=== PATIENT | male | born 1970 | race Caucasian/White ===

== ENCOUNTER 2020-05-07 13:42 | Emergency (ER) | payer BC ==
[2020-05-07] MEDS ORDERED: Lidocaine 1% 20 ML MDV INJECT ONE (13:45)
[2020-05-07] MEDS ORDERED: Bupivacaine 0.25% 10 ML SDV INJECT ONE (13:45)
--- NOTE | 2020-05-07 13:51 | EDM.PDOC ---
ED HPI GENERAL MEDICAL PROBLEM - General Chief Complaint: General Stated Complaint: finger lac Time Seen by Provider: 05/07/20 13:44 Source of Information: Reports: Patient, Family (mother) History Limitations: Reports: No Limitations - History of Present Illness INITIAL COMMENTS - FREE TEXT/NARRATIVE: This patient is a 49 year old male that presents to the ER. Patient reports he was using electric trimmers while cutting the bushes. He reports accidently cutting his right 2nd finger. Onset: Today Onset Date: 05/07/20 Onset Time: 13:00 Location: Reports: Upper Extremity, Right Front/Back Body Image: 1 - laceration Severity: Mild Improves with: Reports: None Worsens with: Reports: None Associated Symptoms: Reports: No Other Symptoms - Related Data Allergies Allergy/AdvReac Type Severity Reaction Status Date / Time clindamycin Allergy Cannot Verified 05/07/20 13:45 Remember vancomycin Allergy Cannot Verified 05/07/20 13:45 Remember Home Meds: Home Meds [place]-3/DHA/Epa/Fish Oil [Fish Oil [place]-3 EC 1,200 mg] 1 cap PO DAILY 05/07/20 [History] ED ROS GENERAL - Review of Systems Review Of Systems: See Below Constitutional: Reports: No Symptoms Respiratory: Reports: No Symptoms Cardiovascular: Reports: No Symptoms GI/Abdominal: Reports: No Symptoms Musculoskeletal: Reports: No Symptoms Skin: Reports: Wound (laceration right 4th finger) ED EXAM, GENERAL - Physical Exam Exam: See Below Exam Limited By: No Limitations General Appearance: Alert, WD/WN, No Apparent Distress Respiratory/Chest: No Respiratory Distress, Lungs Clear, Normal Breath Sounds Cardiovascular: Normal Peripheral Pulses, Regular Rate, Rhythm Peripheral Pulses: 2+: Radial (L), Radial (R) Extremities: Normal Range of Motion, No Pedal Edema, Normal Capillary Refill Neurological: Alert, Oriented Skin Exam: Warm, Dry, Normal Color, No Rash, Wound/Incision (laceraton right finger tip. pain at site, mildly tender. ROM intact. Pulses +2, cap refill < 2 sec, sensory/motor function intact. Neurovascular intact. ) ED GENERAL MEDICAL PROCEDURES - Laceration/Wound Repair Right Digit - 4th (Ring) Lac/wound length in cm: 3 Appearance: Subcutaneous Distal NVT: Neuro & Vascular Intact, No Tendon Injury Anesthetic Type: Digital Local Anesthesia - Lidocaine (Xylocaine): 1% Plain Local Anesthesia - Bupivicaine (Marcaine): 0.5% Plain Local Anesthetic Volume: 4cc (2cc each webspace) Skin Prep: Chlorhexidine (Hibiciens), Isopropyl Alcohol (Alcohol) Saline irrigation (cc's): 100 Exploration/Debridement/Repair: Wound Explored, In a Bloodless Field, Explored to Base, No Foreign Material Found, Wound Margins Revised Closed with: Sutures Suture Size: 5-0 # of Sutures: 6 Suture Type: Nylon Tetanus Status Addressed: Yes Complications: No Course - Vital Signs Last Recorded V/S: Last Vital Signs Temp 97.2 F 05/07/20 13:48 Pulse 75 05/07/20 13:48 Resp 18 05/07/20 13:48 BP 142/85 H 05/07/20 13:48 Pulse Ox 98 05/07/20 13:48 - Orders/Labs/Meds Orders: Active Orders 24 hr Category Date Time Status Fingers Second Digit Rt F6 [CR] Stat Exams 05/07/20 13:44 Taken Meds: Medications Discontinued Medications Generic Name Dose Route Start Last Admin Trade Name Javier PRN Reason Stop Dose Admin Bupivacaine HCl 10 ml 05/07/20 13:45 05/07/20 14:24 Sensorcaine-Mpf 0.25% INJECT 05/07/20 13:46 Not Given ONETIME ONE Bupivacaine HCl 10 ml 05/07/20 13:56 05/07/20 14:24 Sensorcaine-Mpf 0.5% INJECT 05/07/20 13:57 10 ml ONETIME ONE Administration Lidocaine HCl 20 ml 05/07/20 13:45 05/07/20 14:24 Xylocaine 1% INJECT 05/07/20 13:46 20 ml ONETIME ONE Administration Neomycin/Polymyxin/Bacitracin 1 each 05/07/20 14:45 Triple Antibiotic Oint TOP 05/07/20 14:46 ONETIME ONE - Radiology Interpretation Free Text/Narrative:: Right 4th finger: No fracture. No dislocation. Soft tissue injury. No FB. - Re-Assessments/Exams Free Text/Narrative Re-Assessment/Exam: 05/07/20 14:53 Patient mother asked if he needed an abx. She and patient was educated about its not currently recommended for abx use. Keep an eye on for infection. If infec tion occurs, to return right away. Departure - Departure Time of Disposition: 14:52 Disposition: Home, Self-Care 01 Condition: Good Clinical Impression: Laceration - Discharge Information *PRESCRIPTION DRUG MONITORING PROGRAM REVIEWED*: Not Applicable *COPY OF PRESCRIPTION DRUG MONITORING REPORT IN PATIENT GABINO: Not Applicable Instructions: Laceration Care, Adult, Sutures, Biju, or Adhesive Wound Closure, [id number] Referrals: PCP,Unknown [Primary Care Provider] - Forms: ED Department Discharge Additional Instructions: Followup with primary care provider in about 7 days for suture removal Return to the ER for worsening of condition or any emergent concerns such as drainage, fever, redness, infection Wash the wound twice a day gently with soap and water, rinse, pat dry Keep clean Limit use of the finger, so stitches do not pop out Sepsis Event Note (ED) - Focused Exam Vital Signs: Vital Signs Temp Pulse Resp BP Pulse Ox 05/07/20 13:48 97.2 F 75 18 142/85 H 98 - My Orders Last 24 Hours: My Active Orders 05/07/20 13:44 Fingers Second Digit Rt F6 [CR] Stat - Assessment/Plan Last 24 Hours: My Active Orders 05/07/20 13:44 Fingers Second Digit Rt F6 [CR] Stat Plan: PLEASE SEE RN NOTE FOR PFSH
[2020-05-07] MEDS ORDERED: Bupivacaine 0.5% 10 ML SDV INJECT ONE (13:56)
[2020-05-07] MEDS ORDERED: Bacitracin/Neomycin/Polymyxin B Oint 0.9 GM U/D Packet TOP ONE (14:45)
== END 2020-05-07 14:55 | disposition home or self-care (01) ==
LOC: CC.ED 13:42
DX: S61.214A Laceration without foreign body of right ring finger without damage to nail, initial encounter (principal); Z88.1 Allergy status to other antibiotic agents; W29.3XXA Contact with powered garden and outdoor hand tools and machinery, initial encounter
CPT/HCPCS: 12002; 73140; 99283; J2001; J3490

== ENCOUNTER 2021-08-18 14:07 | Emergency (ER) | payer BC ==
--- NOTE | 2021-08-18 15:18 | EDM.PDOC ---
ED HPI GENERAL MEDICAL PROBLEM - General Chief Complaint: General Stated Complaint: Needs ring cut off finger Time Seen by Provider: 08/18/21 14:20 Source of Information: Reports: Patient History Limitations: Reports: No Limitations - History of Present Illness INITIAL COMMENTS - FREE TEXT/NARRATIVE: Elias is a 50 year old who presents with a ring "stuck" on his right ring finger. Found this ring when going through some of her mother's belongings and found this and put it on. It has gotten very tight and his finger feels numb and tingly. has been trying to push and dig around the area to remove it but has caused more discomfort to the finger. Onset: Gradual Duration: Day(s):, Getting Worse Location: Reports: Upper Extremity, Right Quality: Reports: Ache, Throbbing Severity: Moderate Improves with: Reports: None Associated Symptoms: Reports: No Other Symptoms - Related Data Allergies Allergy/AdvReac Type Severity Reaction Status Date / Time clindamycin Allergy Cannot Verified 08/18/21 14:14 Remember vancomycin Allergy Cannot Verified 08/18/21 14:14 Remember Home Meds: Home Meds [place]-3/DHA/Epa/Fish Oil [Fish Oil [place]-3 EC 1,200 mg] 1 cap PO DAILY 05/07/20 [History] Past Medical History HEENT History: Reports: Hard of Hearing, Other (See Below) Other HEENT History: cochlear implants Neurological History: Reports: Brain Injury - Past Surgical History HEENT Surgical History: Reports: Adenoidectomy, Eye Surgery Social & Family History - Family History Family Medical History: No Pertinent Family History - Tobacco Use Tobacco Use Status *Q: Never Tobacco User - Caffeine Use Caffeine Use: Reports: Soda - Recreational Drug Use Recreational Drug Use: No ED ROS GENERAL - Review of Systems Review Of Systems: See Below Constitutional: Reports: No Symptoms HEENT: Reports: No Symptoms Respiratory: Reports: No Symptoms Cardiovascular: Reports: No Symptoms GI/Abdominal: Reports: No Symptoms Musculoskeletal: Reports: Hand Pain Skin: Reports: Erythema Neurological: Reports: No Symptoms ED EXAM, GENERAL - Physical Exam Exam: See Below Exam Limited By: No Limitations General Appearance: Alert, WD/WN, No Apparent Distress Extremities: Other (thick ring to right index finger. Redness and swelling to area. Has open area to proximal side of ring. ) Neurological: Alert, Oriented Course - Vital Signs Last Recorded V/S: Last Vital Signs Temp 97.2 F 08/18/21 14:08 Pulse 104 H 08/18/21 14:08 Resp 20 08/18/21 14:08 BP 143/84 H 08/18/21 14:08 Pulse Ox 94 L 08/18/21 14:08 - Orders/Labs/Meds Meds: Medications Discontinued Medications Generic Name Dose Route Start Last Admin Trade Name Freq PRN Reason Stop Dose Admin Diphtheria/Tetanus/Acell Pertussis 0.5 ml 08/18/21 15:22 08/18/21 15:44 Diphtheria,Pertussis(Acell),Tetanus Vaccine 0.5 Ml Syringe IM 08/18/21 15:23 0.5 ml .ONCE ONE Administration Neomycin/Polymyxin/Bacitracin 0 gm 08/18/21 15:15 08/18/21 15:31 Bacitracin/Neomycin/Polymyxin B Oint 28.4 Gm Tube TOP 08/18/21 15:16 Not Given ONETIME ONE Neomycin/Polymyxin/Bacitracin 1 each 08/18/21 15:19 08/18/21 15:31 Bacitracin/Neomycin/Polymyxin B Oint 0.9 Gm U/D Packet TOP 08/18/21 15:20 1 each ONETIME ONE Administration - Re-Assessments/Exams Free Text/Narrative Re-Assessment/Exam: 08/18/21 Did attempt to remove the ring with the string method but patient unable to tolerate. Ring cutter removed but did take quite a length of time to cut through. Has abrasion and superficial laceration to proximal portion of finger, oozing serous drainage. Triple antibiotic ointment and a bandage applied after removal of the ring. Departure - Departure Time of Disposition: 15:17 Disposition: Home, Self-Care 01 Condition: Good Clinical Impression: Ring or other jewelry causing external constriction, initial encounter - Discharge Information *PRESCRIPTION DRUG MONITORING PROGRAM REVIEWED*: No *COPY OF PRESCRIPTION DRUG MONITORING REPORT IN PATIENT GABINO: No Referrals: PCP,None [Primary Care Provider] - Forms: ED Department Discharge Additional Instructions: 1. Keep wound clean and dry 2. Apply triple antibiotic ointment to area daily 3. Follow up if any concerns with infection Sepsis Event Note (ED) - Evaluation Sepsis Screening Result: No Definite Risk - Focused Exam Vital Signs: Vital Signs Temp Pulse Resp BP Pulse Ox 08/18/21 14:08 97.2 F 104 H 20 143/84 H 94 L
[2021-08-18] MEDS: Bacitracin/Neomycin/Polymyxin B Oint 0.9 GM U/D Packet TOP ONE (15:31)
[2021-08-18] MEDS: Bacitracin/Neomycin/Polymyxin B Oint 28.4 GM Tube TOP ONE (15:31)
[2021-08-18] MEDS: Diphtheria,Pertussis(Acell),Tetanus Vaccine 0.5 ML Syringe IM ONE (15:44)
== END 2021-08-18 15:50 | disposition home or self-care (01) ==
LOC: CC.ED 14:07
DX: S60.450A Superficial foreign body of right index finger, initial encounter (principal); Z88.1 Allergy status to other antibiotic agents; Z23 Encounter for immunization; W45.8XXA Other foreign body or object entering through skin, initial encounter
CPT/HCPCS: 90471; 90715; 99283

== ENCOUNTER 2025-04-04 15:01 | Inpatient (IN) | payer MEDICAID ==
[2025-04-04] MEDS ORDERED: 50% Dextrose in Water 50 ML Syringe IVPUSH PRN ×4 (15:17→16:23)
[2025-04-04] MEDS ORDERED: Ondansetron 4 MG/2 ML SDV IV PRN (15:17)
[2025-04-04] MEDS ORDERED: Glucagon,Human Recombinant 1 MG Vial IM PRN ×4 (15:17→16:23)
[2025-04-04] MEDS ORDERED: Ondansetron 4 MG Tab.DIS PO PRN (15:17)
[2025-04-04 15:47] LABS: HEMOGLOBIN A1C 12.4 % (4.8-5.6)
[2025-04-04] MEDS: Sodium Chloride 0.9% 1,000 ML IV SCH ×2 (15:57→18:38)
[2025-04-04 16:01] LABS: O2 DELIVERY DEVICE ROOM AIR
[2025-04-04 16:06] LABS: BASE EXCESS ARTERIAL -5.9 (-2.0-3.0); BICARBONATE,ARTERIAL 18.7 mm/L (22.0-26.0); O2 SATURATION ARTERIAL 92 % (95-98); PCO2 ARTERIAL 34 mm/Hg0 (35-45); PH,ARTERIAL 7.35 (7.35-7.45); PO2 ARTERIAL 67 mm/Hg (80-100)
[2025-04-04] MEDS: Insulin Lispro 100 Units/ML 3 ML Vial SUBCUT STA ×2 (17:05→17:06)
[2025-04-04] MEDS: cefTRIAXone 1 GM Vial IVPUSH SCH (17:08)
[2025-04-04] MEDS: Sodium Chloride 0.9% 1,000 ML IV ONE (17:21)
[2025-04-04] MEDS: Insulin Lispro 100 Units/ML 3 ML Vial SUBCUT SCH (18:14)
[2025-04-04] MEDS: Insulin Glarg,Human.Rec.Analog 100 Unit/ML 10 ML Vial SUBCUT SCH (19:24)
[2025-04-04] MEDS: Lactobacillus Rhamnosus GG (Probiotic) Cap PO SCH (19:24)
[2025-04-05 07:33] LABS: EOSINOPHILS ABSOLUTE AUTO 0.14 10^3/uL (0.00-1.50); HEMATOCRIT 39.7 % (42.0-52.0); HEMOGLOBIN 13.5 g/dL (14.0-18.0); IMMATURE GRAN ABSOLUTE AUTO 0.27 10^3/uL (0.00-0.49); IMMATURE GRAN PERCENT AUTO 1.8 % (0.0-4.9); LYMPHOCYTES ABSOLUTE AUTO 1.46 10^3/uL (0.60-5.00); MEAN CORPUSCULAR HEMOGLOBIN 30.7 pg (27.0-32.0); MEAN CORPUSCULAR VOLUME 90.2 fL (83.0-97.0); MONOCYTES PERCENT AUTO 8.2 % (0-10); NEUTROPHILS ABSOLUTE AUTO 11.56 x10^3/uL (1.80-8.00); PLATELET COUNT,PLT 227 10^3/uL (150-400); WHITE BLOOD CELL COUNT,WBC 14.6 10^3/uL (4.0-11.0)
[2025-04-05 08:37] LABS: ALBUMIN 1.9 g/dL (3.4-5.0); BILIRUBIN TOTAL 0.3 mg/dL (0.0-1.0); C-REACTIVE PROTEIN 13.18 mg/dL (<=0.50); CALCIUM 8.8 mg/dL (8.4-10.1); EST CRCL DRUG DOSING (CG) 12.52 mL/min; POTASSIUM,K 4.7 mEq/L (3.5-5.0)
[2025-04-05 08:42] LABS: CREATININE 6.6 mg/dL (0.7-1.3)
[2025-04-05 10:48] LABS: PROTEIN TOTAL,TP 5.7 g/dL (6.4-8.2)
[2025-04-05] MEDS: Enoxaparin 30 MG/0.3 ML Syringe SUBCUT SCH (11:22)
[2025-04-05 20:40] VITALS: BP 144/77; PULSE 102
== END 2025-04-05 13:05 | DRG 683 ==
LOC: CC.MS 15:01 → UNDOADMIN 15:01 → CC.MS 15:17
PROVIDERS: ADMIT Physician Assistant Medical; ATTEND Physician Assistant Medical
DX: N17.9 Acute kidney failure, unspecified (principal); E87.1 Hypo-osmolality and hyponatremia; N39.0 Urinary tract infection, site not specified; H91.90 Unspecified hearing loss, unspecified ear; E11.9 Type 2 diabetes mellitus without complications; Z88.8 Allergy status to other drugs, medicaments and biological substances; Z79.899 Other long term (current) drug therapy; Z98.890 Other specified postprocedural states
CPT/HCPCS: 36415; 36600; 51702; 80053; 82803; 82947; 83036; 85025; 86140; 99223; 99239; A9270-GY; J0696; J1650; J1815-GY; J7030